=== PATIENT | female | born 1960 | race Asian ===

== ENCOUNTER 2017-12-20 03:40 | Emergency (ER) | payer OTHER ==
[~2017-12-20] VITALS: Ht 152.4 cm; Wt 56.8 kg
[2017-12-20 03:58] LABS: GLUCOSE,POINT OF CARE 91 MG/DL (70-110)
[2017-12-20] MEDS ORDERED: ATOR40TA28 PO (03:59)
[2017-12-20] MEDS ORDERED: PROP20TA18 PO (03:59)
[2017-12-20] MEDS ORDERED: METF500T6 PO (03:59)
[2017-12-20] MEDS ORDERED: BUPR100T5 PO (03:59)
[2017-12-20] MEDS ORDERED: SERT50TA12 PO (03:59)
[2017-12-20] MEDS ORDERED: ASPI-989 PO (03:59)
[2017-12-20] MEDS ORDERED: OMEP20 PO (03:59)
[2017-12-20] MEDS ORDERED: LEVO125 PO (03:59)
[2017-12-20 04:37] VITALS: BP 138/105
== END 2017-12-20 07:57 | disposition home or self-care (01) ==
LOC: EMS 03:40
DX: S09.90XA Unspecified injury of head, initial encounter (principal); I10 Essential (primary) hypertension; W01.10XA Fall on same level from slipping, tripping and stumbling with subsequent striking against unspecified object, initial encounter; Y93.89 Activity, other specified; Y92.89 Other specified places as the place of occurrence of the external cause; Y99.8 Other external cause status
CPT/HCPCS: 70450; 72125; 99284